=== PATIENT | female | born 2000 | race Caucasian/White ===

== ENCOUNTER 2025-03-01 15:21 | Outpatient (REF) | payer OTHER, SELFPAY ==
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
--- OUTSIDE RECORDS SUMMARY | 2025-03-01 10:45 | XMS_ITS | Encounter Summary ---
Author Organization [facility] Address [address] [place] [address] Phone Care Team Providers Care Coroner'S Juror Name Role Phone Muriel Randall CNP Primary Care Provid er Reason for Visit * Occupational Therapy (Within 3 days (urgent)) - Authorized Specialty Diagnoses / Procedures Referred By Jn corey Referred To Contact Occupational Therapy Diagnoses Bilateral wrist Natalia Aranda CNP [address] [place] [address] Phone: tel: fax: [email or web address] [address] [address] Phone: tel: Referral ID Status Reason Start Date Expiration Date V isits Requested Visits Authorized [id number] Authorized 02/06/2025 06/20/2025 99 99 Encounter Details Date Type Department Care Team (Latest Contact Info) Description 03/01/2025 10:45 AM EDT Office Visit [facility] [address] [place] [address] Natalia Aranda CNP [address] [place] [address] Nena Matias, OT [address] [place] [address] [email or web address] Bilateral carpal tunnel syndrome (Primary Dx); Tendonitis of both wrists Social History Tobacco Use Types Packs/Day Years Used Date Smoking Tobacco: Every Day Cigarettes Started: 07/21/2020; Last attempted to quit: 08/10/2022 Passive Smoke Exposure: Past Smokeless Tobacco: Never Comments:Fully quit krupa jimenez in early Mar 2024 Passive Exposure Comments:Both parents have hx smoking Alcohol Use Standard Drinks/Week Comments Not Currently 0 (1 standard drink = 0.6 oz pur e alcohol) Child or Family Care Answer Date Record ed Do you have problems with on e of the following making it difficult for you to work, study, or receive health care? No 02/01/2025 Education Answer Date Recorded Are you interested in help w ith more adult education (for example, completing high school, GED, job training, learning the [place] language, technical skills, or developing parenting skills)? No 02/01/2025 Are you concerned about your learning, performance, or behavior in school? No 02/01/2025 No 02/01/2025 Yes 02/01/2025 Food Answer Date Recorded Within the past 6 months we worried whether our food would run out before we got money to buy more. Sometimes True 025 Within the past 6 months the food we bought just didn't last and we didn't have enough money to get more. Sometimes True 01/19 Residential Stability Answer Date Recor ded What is your housing situation today? I have darnell cuevas 02/01/2025 How many times have you moved in the past 12 mon ths? One time 02/01/2025 Paying for Meds Answer Date Recorded Do you have trouble paying for medicines? No 02/01/2025 Paying Utility Bills Answer Date Record ed Do you have trouble paying your heating or elect ricity bill? No 02/01/2025 Transportation Answer Date Recorded Has the lack of transportati on kept you from medical appointments or from getting medications? Yes 02/01/2025 Unemployment Answer Date Recorded Are you currently unemployed or working on a part-time or temporary basis, and looking for work? No 02/01/2025 Digital Access Answer Date Recorded No 02/01/2025 Yes 02/01/2025 Do you have reliable internet access at home? Ye s 02/01/2025 Do you have a device (e.g., phone, tablet, computer) with a working camera? Yes 02/01/2025 Intimate Partner Violence Answer Date R ecorded Denied Basic Needs Not on file 11/03/2024 In the past 12 months have y ou been in a relationship with a person who hurts, threatens, or tries to control you? No 11/03/2024 Worried food would run out Not on file 11/03 In the past 12 months have y ou been in a relationship with a person who hurts, threatens, or tries to control you? No 11/03/2024 Comments Unknown Sex and Gender Information Value Date Recorded Sex Assigned at Female 01/27/2021 9:59 AM EDT Legal Sex Male 10:13 AM EDT Gender Identity Male 01/27/2021 9:59 AM EDT Sexual Orientation Lesbian or Gonzalez 12/29/2022 5: 28 AM EDT documented as of this encounter Plan of Treatment Upcoming Encounters Date Type Department Care Team (Latest Contact Info) Description 03/05/2025 2:00 PM EDT Telemedicine [facility] [address] [place] [address] Suni Joyce, PMHNP-BC [address] [place] [address] 03/06/2025 1:30 PM EDT Office Visit [facility] [address] [place] [address] Natalia Aranda CNP [address] [place] [address] [phone] Nena Matias, OT [address] [place] [address] [email or web address] 03/08/2025 9:40 AM EDT Office Visit [facility] & [facility] Medicine [address] [place] [address] [phone] Barbra Heath PA-C [address] [place] [address] [facility] [place] [address] 03/14/2025 9:00 AM EDT Office Visit [facility] [address] [place] [address] Natalia Aranda, PAULA [address] [place] [address] Enriqueta Bell, OT [address] [place] [address] [email or web address] 03/22/2025 1:30 PM EDT Office Visit [facility] [address] [place] [address] Natalia Aranda, PAULA [address] [place] [address] [email or web address] Enriqueta Bell, OT [address] [place] [address] [email or web address] 03/27/2025 2:15 PM EDT Office Visit [facility] [address] [place] [address] Natalia Aranda, SWEEPER OPERATOR [employer] [address] [place] [address] Nena Matias, OT [address] [place] [address] [email or web address] 04/30/2025 1:00 PM EST Office Visit [facility] [address] [place] [address] Ju Duke PA-C [address] [address] 08/13/2025 1:00 PM EST Office Visit [facility] Rheumatology [address] [place] [address] Myrna Mariano MD 22 [facility], [address] [address] [email or web address] 10/08/2025 1:00 PM EDT Telemedicine - audio only [facility] [address] [place] [address] Ju Duke PA-C [address] [place] [address] 10/23/2025 Procedure Pass OR Admitting Dept - Virtual Department [address] [place] [address] 10/23/2025 7:30 AM EDT Hospital Encounter OR Admitting Dept - Virtual Department [address] [place] [address] Ozzy Oquendo MD [address] [place] [address] 10/23/2025 7:30 AM EDT - 10/23/2025 11:12 AM EDT Surgery OR Admitting Dept - Virtual Department [address] [place] [address] Ozzy Oquendo MD [address] [place] [address] MASTECTOMY 10/29/2025 8:30 AM EDT Office Visit [facility] [address] [place] [address] Ju Duke PA-C [address] [place] [address] 11/06/2025 1:00 PM EDT Office Visit [facility] [address] [place] [address] Ju Duke PA-C 40 [facility] [address] [place] [address] [email or web address] [email or web address] Procedures Name Priority Associated Diagnoses Date/Ti me MASTECTOMY gender dysphoria 10/23/2025 7:30 AM EDT RECONSTRUCTION NIPPLE AREOLA gender dysphoria 10/23/2025 7:30 AM EDT Scheduled Referrals Name Type Priority Associated Diagnoses Order Schedule Ambulatory referral to [facility] Occupational Therapy Outpatient Referral Routine Ordered: 02/06/2025 documented as of this encounter Visit Diagnoses Diagnosis Bilateral carpal tunnel syndrome- Primary Carpal tunnel syndrome Tendonitis of both wrists documented in this encounter Additional Health Concerns Assessment Noted Time PHQ-9 Depression Total Score: 3 02/02/20 23 10:56 AM EDT PHQ-2 Depression Total Score: 2 11/11/19 25 12:31 PM EDT documented as of this encounter Care Teams Coroner'S Juror Relationship Specialty Start Date End Date Muriel Randall CNP [address] [place] [address] PCP - General Nurse Practitioner 04/18/24 documented as of this encounter Additional Source Comments The information contained in this document represents components of the legal health record. It is not the complete legal health record.[facility]
--- OUTSIDE RECORDS SUMMARY | 2025-03-01 18:36 | XMS_ITS | Encounter Summary ---
Author Organization [facility] Address [address] [place] [address] Phone Care Team Providers Care Legal Service Specialist Name Role Phone Muriel Randall CNP Primary Care Provid er Encounter Details Date Type Department Care Team (Late st Contact Info) Description 02/27/2025 Orders Only [facility] [address] [place] [address] [phone] Natalia Aranda CNP [address] [place], [place] [phone] [email or web address] Chronic pain of both wrists (Primary Dx) Social History Tobacco Use Types Packs/Day Years Used Date Smoking Tobacco: Every Day Cigarettes Started: 07/21/2020; Last attempted to quit: 08/10/2022 Passive Smoke Exposure: Past Smokeless Tobacco: Never Comments:Fully quit cigarett es in early Mar 2024 Passive Exposure Comments:Both [...] high school, GED, job training, learning the [place] language, technical skills, or developing parenting skills)? [...] have you moved in the past 12 wed th? One time 02/01/2025 Paying for Meds Answer [...] Description 03/05/2025 2:00 PM EDT Telemedicine [facility] [address] [place] [address] Suni Joyce, PMHNP-BC [address] [place] [address] 03/06/2025 1:30 PM EDT Office Visit [facility] [address] [place] [address] Natalia Aranda, SHOT DROPPER [address] [place] [address] Nena Matias, OT [address] [place], [place] [phone] [email or web address] 03/08/2025 9:40 AM EDT Office Visit [facility] Orthopedics & Sports Medicine [address] [place] [address] [phone] Barbra Heath PA-C [address] [place] [address] Orthopedics & Sports Medicine, [place] [address] 03/14/2025 9:00 AM EDT Office Visit [facility] [address] [place] [address] Natalia Aranda, SHOT DROPPER [address] [place] [address] Enriqueta Bell, OT [address] [place] [address] [email or web address] 03/22/2025 1:30 PM EDT Office Visit [facility] [address] [place] [address] Natalia Aranda, SHOT DROPPER [address] [place] [address] [phone] Enriqueta Bell, OT [address] [place] [address] [email or web address] 03/27/2025 2:15 PM EDT Office Visit [facility] [address] [place] [address] Natalia Aranda, SHOT DROPPER [address] [place] [address] Nena Matias, OT [address] [place] [address] [email or web address] 04/30/2025 1:00 PM EST Office Visit [facility] Plastic Surgery [address] [place] [address] Ju Duke PA-C [address] [place] [address] 08/13/2025 1:00 PM EST Office Visit [facility] Rheumatology [address] [place] [address] Myrna Mariano MD [address] [address] [email or web address] 10/08/2025 1:00 PM EDT Telemedicine - audio only [facility] Plastic Surgery [address] [place] [address] Ju Duke PA-C [address] [place] [address] 10/23/2025 Procedure Pass OR Admitting Dept - Virtual Department [address] [place] [address] 10/23/2025 7:30 AM EDT Hospital Encounter OR Admitting Dept - Virtual Department [address] [place] [address] Ozzy Oquendo MD [address] [place] [address] 10/23/2025 7:30 AM EDT - 10/23/2025 11:12 AM EDT Surgery OR Admitting Dept - Virtual Department [address] [place] [address] Ozzy Oquendo MD [address] [place] [address] MASTECTOMY 10/29/2025 8:30 AM EDT Office Visit [facility] Plastic Surgery [address] [place] [address] Ju Duke PA-C [address] [place] [address] 11/06/2025 1:00 PM EDT Office Visit [facility] Plastic Surgery [address] [place] [address] Ju Duke PA-C [address] [place] [address] [email or web address] Scheduled Procedures Name Priority Associated Diagnoses Date/Ti me MASTECTOMY gender dysphoria 10/23/2025 7:30 AM EDT RECONSTRUCTION NIPPLE AREOLA gender dysphoria 10/23/2025 7:30 AM EDT documented as of this encounter Visit Diagnoses Diagnosis Chronic pain of both wrists- Primary documented in this encounter Additional Health Concerns Assessment Noted Time PHQ-9 Depression Total Score: 3 02/02/20 23 10:56 AM EDT PHQ-2 Depression Total Score: 2 11/11/19 25 12:31 PM EDT documented as of this encounter Care Teams Legal Service Specialist Relationship Specialty Start Date End Date Muriel Randall CNP [address] [place] [address] PCP - General Nurse Practitioner 04/18/24 documented as of this encounter Additional Source Comments The information contained in this document represents components of the legal health record. It is not the complete legal health record[facility]
--- OUTSIDE RECORDS SUMMARY | 2025-03-01 18:36 | XMS_ITS | Clinical Summary ---
Author Organization [facility] Address [address] [place] [address] Phone Care Team Providers Care Business Banking Manager Name Role Phone Muriel Randall CNP Primary Care Provid er Allergies Active Allergy Reactions Criticality Noted Date Comments Amoxicillin Rash Low 07/01/2022 Had rash as a child Medications needle, disp, 18 G 18 gauge x 1 NdleIndications: Gender incongruence Use weekly to DRAW UP testosterone from vial 12 each 3 04/18/20 24 Active needle, disp, 25 gauge (BD REGULAR BEVEL NEEDLES) 25 gauge x 5/8 NdleIndications: Gender incongruence Use as directed to INJECT testosterone via subcutaneous route 12 each 3 04/18/20 24 Active syringe, disposable, 1 mL SyrgIndications: Gender incongruence Use as directed for subcutaneous testoterone injections 12 each 3 04/18/20 24 Active cloNIDine HCL (CATAPRES) 0.2 MG tabletIndication s:Depression with anxiety Take 1 tablet (0.2 mg total) by mouth nightly at bedtime. 90 tablet 2 12/26/19 25 Active escitalopram oxalate (LEXAPRO) 20 MG tabletIndication s:Depression with anxiety Take 1 tablet (20 mg total) by mouth daily. 90 tablet 1 01/10/20 25 Active ergocalciferol (DRISDOL) 50,000 unit capsule Take 1 capsule (50,000 Units total) by mouth once a week. Take for 12 full weeks 12 capsule 01/19/20 25 Active testosterone cypionate (DEPO-TESTOTERON E) 200 mg/mL injectionIndicat ions:Gender incongruence Inject 0.4ml (80mg) under the skin once weekly. Discard vial after single use. 4 mL 3 02/06/20 25 Active gabapentin (NEURONTIN) 100 MG capsule Take 1 capsule (100 mg total) by mouth nightly at bedtime as needed (Take for worsening hand pain) for 4 days, THEN 3 capsules (300 mg total) nightly at bedtime as needed (Take for worsening hand pain). 60 capsule 2 02/07/20 25 025 Active meloxicam (MOBIC) 15 MG tablet Take 1 tablet (15 mg total) by mouth daily. 30 tablet 2 02/28/20 25 025 Active testosterone cypionate (DEPO-TESTOTERON E) 200 mg/mL injectionIndicat ions:Gender incongruence Inject 0.4ml (80mg) under the skin once weekly. Discard vial after single use. 4 mL 3 10/25/19 25 025 Discontin ued(Reord er) meloxicam (MOBIC) 15 MG tabletIndication s:Carpal tunnel syndrome, unspecified laterality Take 1 tablet (15 mg total) by mouth daily. 30 tablet 12/26/19 25 025 Discontin ued(Reord er) meloxicam (MOBIC) 15 MG tabletIndication s:Carpal tunnel syndrome, unspecified laterality Take 1 tablet (15 mg total) by mouth daily. 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 Follow up in 1 month Will adjust doses based on results LACEY (generalized anxiety disorder) 12/30/2022 Assessment & Plan (06/01/2023 3:45 PM EST): Recommend hydroxyzine 25 mg every 6 hours as needed for panic attacks or increasing anxiety Depression 12/28/2022 Assessment & Plan (06/01/2023 3:43 PM EST): Increase Lexapro to 20mg daily Let me know how it's working Assessment & Plan (12/28/2022 9:05 PM EDT): Based on googling possible suicide methods, consulted crisis services (Talita) from [facility]. Her evaluation did not support moving to higher level of care but they will contact Gregory for the next three days to see if he needs support. Gave Gregory crisis contact information as well as info on peer groups and supports via [employer], [employer] and others. Consulted MHNP who noted that escitalopram sometimes has a more rapid onset. Based on this, prescribed starting dose of escitalopram daily and clonidine nightly. Follow up weekly for testosterone shots, so we will use this as an opportunity to check in on him. Follow up with me in four weeks. Has follow up with therapist next week. Recommended going to weekly therapy for the time being to help stablize. 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 Assessment & Plan (06/01/2023 3:43 PM EST): Get labs done in the next few months at [facility] Follow up in 6 months Assessment & Plan (04/13/2023 3:42 PM EDT): Decrease testosterone to 0.35 mL (70mg) weekly due to increased anxiety Refer to speech therapy for some voice work Follow up in six months Assessment & Plan (02/01/2023 8:17 PM EDT): Continue current management Labs in 5 months Follow up in six months Assessment & Plan (10/09/2022 12:39 PM EDT): Increase testosterone to 80mg weekly Labs in 2-3 mos Follow up in six months Assessment & Plan (07/03/2022 4:54 PM EST): Change to testosterone injectable 50 mg weekly Will want shots with nurses Sent info for parents Follow up and labs in three months Assessment & Plan (01/02/2022 1:34 PM EDT): Most likely will need to pause testosterone until gets HS under control. Assessment & Plan (11/24/2021 5:03 PM EDT): Gregory meets criteria for the diagnosis of gender dysphoria and readiness to start hormone therapy with testosterone. Start at 50 mg (0.25 mL) testosterone weekly via subcutaneous route Follow up in 6 weeks for check in, 3 months for labs Assessment & Plan (09/19/2021 4:48 PM EDT): Thank you for coming in today. We'll see you back in a few weeks. 1. I've given you a bunch of resource materials. Take a look, wrangell, sandra, ask questions and we'll discuss next time. Or, drop me a note in the patient portal. 2. Labwork: Please get labs done before 10 am at least one week prior to our next appointment. We will go over the results then unless something is really abnormal. Assessment & Plan (01/29/2021 3:41 PM EDT): Review informed consent and testosterone information Get labwork completed I'm going to refer you to Dr. Oquendo for a surgery consultation Follow up live in 2-3 weeks. Hidradenitis suppurativa 01/29/2021 Assessment & Plan (01/02/2022 1:33 PM EDT): Tried to engage for various treatments and patient has tried them before. Will refer to dermatology. Assessment & Plan (01/29/2021 3:42 PM EDT): Will observe when you start testosterone and treat accordingly. Encounters Date Type Department Care Team Description 03/01/2025 10:45 AM EDT Office Visit [facility] [address] [place] [address] Crisfield, Natalia Chelle, STONE POLISHER HAND Nena Matias OT Bilateral carpal tunnel syndrome (Primary Dx); Tendonitis of both wrists 02/27/2025 Telephone [facility] [address] [place] [phone] Lucina Sams, SANDY External MRI 02/27/2025 Orders Only [facility] [address] [place] [phone] Crisfield, Natalia Corbett, STONE POLISHER HAND Chronic pain of both wrists (Primary Dx) 02/13/[address] [phone] Carrie Holley MA Appointment (Calling to reschedule appointment due to patient arriving too late) 02/12/2025 10:15 AM EDT Office Visit [facility] [address] [place] [phone] Myrna Cisneros MD Extensor tenosynovitis of left wrist (Primary Dx); Bilateral hand numbness 02/06/2025 10:00 AM EDT Telemedicine [facility] [address] [place] [address] [phone] Natalia Aranda, PAULA Bilateral hand pain (Primary Dx); Bilateral wrist pain 02/06/2025 Telephone [facility] [address] [place] [address] [phone] Nirmal Turner RN 02/01/2025 1:00 PM EDT Telemedicine [facility] [address] [place] [address] [phone] Muriel Randall CNP Chronic pain of both wrists (Primary Dx); Carpal tunnel syndrome, unspecified laterality; Vitamin D deficiency, unspecified 01/18/2025 Orders Only [facility] [address] [place] [address] [phone] Muriel Randall CNP Vitamin D deficiency, unspecified (Primary Dx) 01/17/2025 11:39 AM EDT - 01/17/2025 11:59 PM EDT Hospital Encounter [facility], [address] [address] Muriel Randall CNP Discharge Disposition: Home or Self Care 01/17/2025 11:39 AM EDT - 01/17/2025 11:59 PM EDT Hospital Encounter [address] [phone] Muriel Randall CNP Discharge Disposition: Home or Self Care 01/17/2025 11:38 AM EDT Hospital Encounter [address] [address] Muriel Randall CNP Discharge Disposition: Home or Self Care 01/17/2025 11:37 AM EDT Hospital Encounter [address] [address] Muriel Randall CNP Discharge Disposition: Home or Self Care 01/17/2025 10:29 AM EDT - 01/17/2025 11:36 AM EDT Hospital Encounter [facility] [address] [place] [phone] Muriel Randall CNP Discharge Disposition: Home or Self Care 01/17/2025 9:30 AM EDT Office Visit [facility] [address] [place] [phone] Muriel Randall CNP Polyarthralgia (Primary Dx); Bilateral wrist pain; Bilateral foot pain 01/09/2025 11:00 AM EDT Telemedicine [facility] [address] [place] [phone] Suni Joyce, HN- PTSD (post-traumatic stress disorder) (Primary Dx); Autism spectrum disorder 01/08/2025 Telephone [facility] [address] [place] [phone] Muriel Randall CNP 01/05/2025 9:00 AM EDT Telemedicine [facility] [address] [place] [phone] Muriel Randall CNP Medication management (Primary Dx) 12/25/2024 Telephone [facility] [address] [place] [phone] Lena Ashley MD 12/20/2024 10:30 AM EDT Office Visit [facility] [address] [place] [phone] Lena Ashley MD Carpal tunnel syndrome, unspecified laterality (Primary Dx); Depression with anxiety 12/20/2024 Telephone [facility] [address] [place] [phone] Eli Campa MA 12/14/2024 Refill [facility] [address] [place] [phone] Lena Ashley MD Medication Refill from Last 3 Months Immunizations Immunization Administration Dates Next Due COVID-19 (Pre-04/12) Pfizer Vaccine, mRNA, PF 11/16/2020,10/22/2020 HPV9 12/05/2020,07/15/2020,05/13/2020 Influenza Quadrivalent Preservative Free IM 04/21,04/06/2019 Meningococcal B, recombinant (MenB-FHbp) 020,05/12/2019 Meningococcal MCV4P 05/12/2019 Family History Medical History Relation Comments No Known Problems Father Hidradenitis suppurativa Mother No Known Problems Sister 1 No Known Problems Sister 2 No Known Problems Sister 3 No Known Problems Sister 4 Relation Status Comments Father Alive Mother Alive Sister 1 Alive Sister 2 Alive Sister 3 Alive Sister 4 Alive Social History Tobacco Use Types Packs/Day Years Used Date Smoking Tobacco: Every Day Cigarettes Started: 07/21/2020; Last attempted to quit: 08/10/2022 Passive Smoke Exposure: Past Smokeless Tobacco: Never Tobacco Cessation:Ready to Q uit: Not Asked; Counseling Given: Not Answered Comments:Fully quit cigarettes in early Mar 2024 Passive Exposure Comments:Both [...] high school, GED, job training, learning the Yi language, technical skills, or developing parenting skills)? [...] your housing situation today? I have darnell sing 02/01/2025 How many times have you moved in the past 12 wed? One time 02/01/2025 Paying for Meds Answer [...] or Gonzalez 12/29/2022 5: 28 AM EDT Last Filed Vital Signs Vital Sign Reading Time Taken Comments Blood Pressure 120/80 01/17/2025 9:37 AM EDT Pulse 89 01/17/2025 9:37 AM EDT Temperature 36.5 C (97.7 F) 05/31/2023 9:42 AM EST Respiratory Rate - - Oxygen Saturation 99% 01/17/2025 9:37 AM EDT Inhaled Oxygen Concentration - - Weight 86.2 kg (190 lb) 02/26/2025 12:48 PM EDT Height 167.6 cm (5' 6 ) 02/26/2025 12:48 PM EDT Body Mass Index 30.67 02/26/2025 12:48 PM EDT Plan of Treatment Upcoming Encounters Date Type Department Care Team (Latest Contact Info) Description 03/05/2025 2:00 PM EDT Telemedicine [facility] [address] [place] [phone] Suni Joyce, PMHNP-BC [address] [place] [phone] 03/06/2025 1:30 PM EDT Office Visit [facility] [address] [place] [address] Natalia Aranda CNP [address] [place] [address] [phone] Nena Matias, OT [address] [place] [address] [email or web address] 03/08/2025 9:40 AM EDT Office Visit [facility] [address] [place] [phone] Barbra Heath PA-C [address] [place] [address] Orthopedics & Sports Medicine, [facility] [place] [address] 03/14/2025 9:00 AM EDT Office Visit [facility] [address] [place] [address] Natalia Aranda, PAULA [address] [place] [address] Enriqueta Bell, OT [address] [place] [address] [email or web address] 03/22/2025 1:30 PM EDT Office Visit [facility] [address] [place] [address] Natalia Aranda, PAULA [address] [place] [address] Enriqueta Bell, OT [address] [place] [address] [email or web address] 03/27/2025 2:15 PM EDT Office Visit [facility] [address] [place] [address] Natalia Aranda, PAULA [address] [place] [address] Nena Matias, OT [address] [place] [address] [email or web address] 04/30/2025 1:00 PM EST Office Visit [facility] Plastic Surgery [address] [place] [address] Ju Duke PA-C [address] [phone] 08/13/2025 1:00 PM EST Office Visit [facility] Rheumatology [address] [place] [address] Myrna Mariano MD [address] [facility], [address] [place] [phone] [email or web address] 10/08/2025 1:00 PM EDT Telemedicine - audio only [facility] Plastic Surgery [address] [place] [phone] Ju Duke PA-C [address] [place] [phone] 10/23/2025 Procedure Pass OR Admitting Dept - Virtual Department [address] [place] [phone] 10/23/2025 7:30 AM EDT Hospital Encounter OR Admitting Dept - Virtual Department [address] [place] [phone] Ozzy Oquendo MD [address] [place] [phone] 10/23/2025 7:30 AM EDT - 10/23/2025 11:12 AM EDT Surgery OR Admitting Dept - Virtual Department [address] [place] [phone] Ozzy Oquendo MD [address] [place] [phone] MASTECTOMY 10/29/2025 8:30 AM EDT Office Visit [facility] Plastic Surgery [address] [place] [phone] Ju Duke PA-C [address] [place] [address] 11/06/2025 1:00 PM EDT Office Visit [facility] Plastic Surgery [address] [place] [phone] Ju Duke PA-C [address] [place] [address], [address] [place] [address] [email or web address] Scheduled Procedures Name Priority Associated Diagnoses Date/Ti me MASTECTOMY gender dysphoria 10/23/2025 7:30 AM EDT RECONSTRUCTION NIPPLE AREOLA gender dysphoria 10/23/2025 7:30 AM EDT Health Maintenance Due Date Last Done Comments Adult Td,Tdap Booster 2002 HEPATITIS C SCREENING 2020 HIV ONE-TIME SCREENING (18-6 5 YEARS) 2020 PNEUMOCOCCAL VACCINES (0-49 years) (1 of 2 - PCV) 2021 INFLUENZA VACCINE (#1) 2025 9, 04/06/2019 COVID-19 VACCINE (3 - 2024-2 6 season) 2025 11/16/2020, 10/22/2020 DEPRESSION SCREENING 11/10/2025 11/10/2024, 01/22/2024 SMOKING Hx and SMOKELESS TOBACCO SCREENING 02/12/2026 02/12/2025 MENINGOCOCCAL VACCINES (ACWY) Completed 05/12/2019 MENINGOCOCCAL VACCINES (B) Completed 05/13, 05/12/2019 HPV VACCINES Completed 12/05/2020, 07/15/2020, 05/13/2020 HEPATITIS A VACCINES Aged Out No long er eligible based on patient's age to complete this topic HIB VACCINES Aged Out No longer eligi ble based on patient's age to complete this topic Medical Devices Not on file Procedures Procedure Name Priority Date/Time Associated Diagnosis Comments XR FOOT 3 OR MORE VIEWS (LEFT) Routine 01/17/2025 12:22 PM EDT Bilateral foot pain XR HAND 3 OR MORE VIEWS (RIGHT) Routine 01/17/2025 12:21 PM EDT Bilateral wrist pain XR HAND 3 OR MORE VIEWS (LEFT) Routine 01/17/2025 12:21 PM EDT Bilateral wrist pain XR FOOT 3 OR MORE VIEWS (RIGHT) Routine 01/17/2025 12:21 PM EDT Bilateral foot pain Antinuclear antibody, titer and pattern Routine 01/17/2025 11:18 AM EDT TESTOSTERONE, TOTAL Routine 01/17/2025 1 1:18 AM EDT Polyarthralgia CBC AND DIFFERENTIAL Routine 01/17/2025 11:18 AM EDT Polyarthralgia ANTINUCLEAR ANTIBODY (FABIOLA) Routine 01/17/2025 11:18 AM EDT Polyarthralgia C-REACTIVE PROTEIN Routine 01/17/2025 11 :18 AM EDT Polyarthralgia 25-OH VITAMIN D Routine 01/17/2025 11:18 AM EDT Polyarthralgia RHEUMATOID FACTOR Routine 01/17/2025 11: 18 AM EDT Polyarthralgia COMPREHENSIVE METABOLIC PANEL Routine 01/17/2025 11:18 AM EDT Polyarthralgia TSH WITH REFLEX Routine 01/17/2025 11:18 AM EDT Polyarthralgia SS-A/SS-B ANTIBODIES Routine 01/17/2025 11:18 AM EDT Polyarthralgia DOUBLE STRANDED DNA ANTIBODIES Routine 01/17/2025 11:18 AM EDT Polyarthralgia SEDIMENTATION RATE (ESR) Routine 01/17/2025 11:18 AM EDT Polyarthralgia U1RNP AND ARNOLD ANTIBODIES Routine 01/17/2025 11:18 AM EDT Polyarthralgia HC IADNA NOS AMPLIFIED PROBE TQ EACH ORGANISM Routine 01/17/2025 11:18 AM EDT Polyarthralgia LYME SCREEN WITH REFLEX TO WESTERN BLOT, BLOOD Routine 01/17/2025 11:18 AM EDT Polyarthralgia from Last 3 Months Results * XR FOOT 3 OR MORE VIEWS (LEFT) (01/17/2025 12:22 PM EDT) Anatomical Region Laterality Modality Foot Left Computed Radiogr aphy 01/18/2025 3:46 PM EDT Impressions 01/18/2025 4:49 PM EDT 1. No fracture or dislocation. 2. No osseous erosion. 3. Mild bilateral hallux valgus. Narrative 01/18/2025 4:49 PM EDT XR FOOT 3 OR MORE VIEWS (RIGHT), XR FOOT 3 OR MORE VIEWS (LEFT), XR HAND 3 OR MORE VIEWS (RIGHT), XR HAND 3 OR MORE VIEWS (LEFT) Referring clinician's provided indication for this examination in Epic: Pain; bilater foot pain, non-specific. Present x 3 mos. Pain with ambulation. Mild protrusion of MTP join with mild deviation of L great toe COMPARISON: None. FINDINGS: Right hand: No fracture. No osseous erosion. Normal alignment. Normal joint spaces. No soft tissue swelling Left hand: No fracture. No osseous erosion. Normal alignment. Normal joint spaces. No soft tissue swelling Right foot: No fracture. Mild hallux valgus. Bipartite medial hallux sesamoid. No osseous erosion. Normal alignment. Normal joint spaces. No soft tissue swelling. Left foot: No fracture. Mild hallux valgus. Bipartite medial hallux sesamoid. No osseous erosion. Normal alignment. Normal joint spaces. No soft tissue swelling Procedure Note Venkatesh Marrero MD - 01/18/2025 XR FOOT 3 OR MORE VIEWS (RIGHT), XR FOOT 3 OR MORE VIEWS (LEFT), XR HAND 3OR MORE VIEWS (RIGHT), XR HAND 3 OR MORE VIEWS (LEFT) Referring clinician's provided indication for this examination in [facility]:Pain; bilater foot pain, non-specific. Present x 3 mos. Pain withambulation. Mild protrusion of MTP join with mild deviation of L greattoe COMPARISON: None. FINDINGS: Right hand: No fracture. No osseous erosion. Normal alignment. Normaljoint spaces. No soft tissue swelling Left hand: No fracture. No osseous erosion. Normal alignment. Normal jointspaces. No soft tissue swelling Right foot: No fracture. Mild hallux valgus. Bipartite medial halluxsesamoid. No osseous erosion. Normal alignment. Normal joint spaces. Nosoft tissue swelling. Left foot: No fracture. Mild hallux valgus. Bipartite medial halluxsesamoid. No osseous erosion. Normal alignment. Normal joint spaces. Nosoft tissue swelling IMPRESSION: 1. No fracture or dislocation. 2. No osseous erosion. 3. Mild bilateral hallux valgus. Muriel Randall STONE POLISHER HAND IMG XR LOWER EXTREMI TY Final Result * XR HAND 3 OR MORE VIEWS (RIGHT) (01/17/2025 12:21 PM EDT) Anatomical Region Laterality Modality Hand Right Computed Radiogr aphy 01/18/2025 3:46 PM EDT Impressions 01/18/2025 4:49 PM EDT 1. No fracture or dislocation. 2. No osseous erosion. 3. Mild bilateral hallux valgus. Narrative 01/18/2025 4:49 PM EDT XR FOOT 3 OR MORE VIEWS (RIGHT), XR FOOT 3 OR MORE VIEWS (LEFT), XR HAND 3 OR MORE VIEWS (RIGHT), XR HAND 3 OR MORE VIEWS (LEFT) Referring clinician's provided indication for this examination in Epic: Pain; bilater foot pain, non-specific. Present x 3 mos. Pain with ambulation. Mild protrusion of MTP join with mild deviation of L great toe COMPARISON: None. FINDINGS: Right hand: No fracture. No osseous erosion. Normal alignment. Normal joint spaces. No soft tissue swelling Left hand: No fracture. No osseous erosion. Normal alignment. Normal joint spaces. No soft tissue swelling Right foot: No fracture. Mild hallux valgus. Bipartite medial hallux sesamoid. No osseous erosion. Normal alignment. Normal joint spaces. No soft tissue swelling. Left foot: No fracture. Mild hallux valgus. Bipartite medial hallux sesamoid. No osseous erosion. Normal alignment. Normal joint spaces. No soft tissue swelling Procedure Note Venkatesh Marrero MD - 01/18/2025 XR FOOT 3 OR MORE VIEWS (RIGHT), XR FOOT 3 OR MORE VIEWS (LEFT), XR HAND 3OR MORE VIEWS (RIGHT), XR HAND 3 OR MORE VIEWS (LEFT) Referring clinician's provided indication for this examination in Epic:Pain; bilater foot pain, non-specific. Present x 3 mos. Pain withambulation. Mild protrusion of MTP join with mild deviation of L greattoe COMPARISON: None. FINDINGS: Right hand: No fracture. No osseous erosion. Normal alignment. Normaljoint spaces. No soft tissue swelling Left hand: No fracture. No osseous erosion. Normal alignment. Normal jointspaces. No soft tissue swelling Right foot: No fracture. Mild hallux valgus. Bipartite medial halluxsesamoid. No osseous erosion. Normal alignment. Normal joint spaces. Nosoft tissue swelling. Left foot: No fracture. Mild hallux valgus. Bipartite medial halluxsesamoid. No osseous erosion. Normal alignment. Normal joint spaces. Nosoft tissue swelling IMPRESSION: 1. No fracture or dislocation. 2. No osseous erosion. 3. Mild bilateral hallux valgus. Muriel Randall [facility] IMG XR UPPER EXTREMI TY Final Result * XR HAND 3 OR MORE VIEWS (LEFT) (01/17/2025 12:21 PM EDT) Anatomical Region Laterality Modality Hand Left Computed Radiogr aphy 01/18/2025 3:46 PM EDT Impressions 01/18/2025 4:49 PM EDT 1. No fracture or dislocation. 2. No osseous erosion. 3. Mild bilateral hallux valgus. Narrative 01/18/2025 4:49 PM EDT XR FOOT 3 OR MORE VIEWS (RIGHT), XR FOOT 3 OR MORE VIEWS (LEFT), XR HAND 3 OR MORE VIEWS (RIGHT), XR HAND 3 OR MORE VIEWS (LEFT) Referring clinician's provided indication for this examination in [facility]: Pain; bilater foot pain, non-specific. Present x 3 mos. Pain with ambulation. Mild protrusion of MTP join with mild deviation of L great toe COMPARISON: None. FINDINGS: Right hand: No fracture. No osseous erosion. Normal alignment. Normal joint spaces. No soft tissue swelling Left hand: No fracture. No osseous erosion. Normal alignment. Normal joint spaces. No soft tissue swelling Right foot: No fracture. Mild hallux valgus. Bipartite medial hallux sesamoid. No osseous erosion. Normal alignment. Normal joint spaces. No soft tissue swelling. Left foot: No fracture. Mild hallux valgus. Bipartite medial hallux sesamoid. No osseous erosion. Normal alignment. Normal joint spaces. No soft tissue swelling Procedure Note Venkatesh Marrero MD - 01/18/2025 XR FOOT 3 OR MORE VIEWS (RIGHT), XR FOOT 3 OR MORE VIEWS (LEFT), XR HAND 3OR MORE VIEWS (RIGHT), XR HAND 3 OR MORE VIEWS (LEFT) Referring clinician's provided indication for this examination in [facility]:Pain; bilater foot pain, non-specific. Present x 3 mos. Pain withambulation. Mild protrusion of MTP join with mild deviation of L greattoe COMPARISON: None. FINDINGS: Right hand: No fracture. No osseous erosion. Normal alignment. Normaljoint spaces. No soft tissue swelling Left hand: No fracture. No osseous erosion. Normal alignment. Normal jointspaces. No soft tissue swelling Right foot: No fracture. Mild hallux valgus. Bipartite medial halluxsesamoid. No osseous erosion. Normal alignment. Normal joint spaces. Nosoft tissue swelling. Left foot: No fracture. Mild hallux valgus. Bipartite medial halluxsesamoid. No osseous erosion. Normal alignment. Normal joint spaces. Nosoft tissue swelling IMPRESSION: 1. No fracture or dislocation. 2. No osseous erosion. 3. Mild bilateral hallux valgus. Muriel Randall STONE POLISH[employer] HAND IMG XR UPPER EXTREMI TY Final Result * XR FOOT 3 OR MORE VIEWS (RIGHT) (01/17/2025 12:21 PM EDT) Anatomical Region Laterality Modality Foot Right Computed Radiogr aphy 01/18/2025 3:46 PM EDT Impressions 01/18/2025 4:49 PM EDT 1. No fracture or dislocation. 2. No osseous erosion. 3. Mild bilateral hallux valgus. Narrative 01/18/2025 4:49 PM EDT XR FOOT 3 OR MORE VIEWS (RIGHT), XR FOOT 3 OR MORE VIEWS (LEFT), XR HAND 3 OR MORE VIEWS (RIGHT), XR HAND 3 OR MORE VIEWS (LEFT) Referring clinician's provided indication for this examination in [facility]: Pain; bilater foot pain, non-specific. Present x 3 mos. Pain with ambulation. Mild protrusion of MTP join with mild deviation of L great toe COMPARISON: None. FINDINGS: Right hand: No fracture. No osseous erosion. Normal alignment. Normal joint spaces. No soft tissue swelling Left hand: No fracture. No osseous erosion. Normal alignment. Normal joint spaces. No soft tissue swelling Right foot: No fracture. Mild hallux valgus. Bipartite medial hallux sesamoid. No osseous erosion. Normal alignment. Normal joint spaces. No soft tissue swelling. Left foot: No fracture. Mild hallux valgus. Bipartite medial hallux sesamoid. No osseous erosion. Normal alignment. Normal joint spaces. No soft tissue swelling Procedure Note Venkatesh Marrero MD - 01/18/2025 XR FOOT 3 OR MORE VIEWS (RIGHT), XR FOOT 3 OR MORE VIEWS (LEFT), XR HAND 3OR MORE VIEWS (RIGHT), XR HAND 3 OR MORE VIEWS (LEFT) Referring clinician's provided indication for this examination in [facility]:Pain; bilater foot pain, non-specific. Present x 3 mos. Pain withambulation. Mild protrusion of MTP join with mild deviation of L greattoe COMPARISON: None. FINDINGS: Right hand: No fracture. No osseous erosion. Normal alignment. Normaljoint spaces. No soft tissue swelling Left hand: No fracture. No osseous erosion. Normal alignment. Normal jointspaces. No soft tissue swelling Right foot: No fracture. Mild hallux valgus. Bipartite medial halluxsesamoid. No osseous erosion. Normal alignment. Normal joint spaces. Nosoft tissue swelling. Left foot: No fracture. Mild hallux valgus. Bipartite medial halluxsesamoid. No osseous erosion. Normal alignment. Normal joint spaces. Nosoft tissue swelling IMPRESSION: 1. No fracture or dislocation. 2. No osseous erosion. 3. Mild bilateral hallux valgus. Muriel Randall [employer] HAND IMG XR LOWER EXTREMI TY Final Result * Antinuclear antibody, titer and pattern (01/17/2025 11:18 AM EDT) FABIOLA TITER 1:40 Homogeneous [facility] 01/17/2025 11:1 8 AM EDT 01/17/2025 11:36 AM EDT Muriel Randall [employer] HAND LAB BLOOD ORDERABLES Final Result Performing Organization Address City/State/[facility] Co de Phone Number [address] [phone] * TICK-BORNE DNA PANEL, B (01/17/2025 11:18 AM EDT) B.Microti PCR Negative Negative [facility] DPT OF LAB MED AND PAT+ B.Duncani PCR Negative Negative [facility] DPT OF LAB MED AND PAT+ B.Divergens/MO-1 PCR Negative Negative [facility] DPT OF LAB MED AND PAT+ Comment: (NOTE) ADDITIONAL INFORMATION This test was developed and its performance characteristics determined by [facility] in a manner consistent with CLIA requirements. This test has not been cleared or approved by the U.S. Food and Drug Administration. ANAPLASMA PHAGOCYTO Negative Negative [facility] DPT OF LAB MED AND PAT+ EHRLICHIA CHAFFEENS Negative Negative [facility] DPT OF LAB MED AND PAT+ EHRL EWINGII/CANIS Negative Negative [facility] DPT OF LAB MED AND PAT+ EHRL MURIS-LIKE Negative Negative [facility] DPT OF LAB MED AND PAT+ Comment: (NOTE) ADDITIONAL INFORMATION This test was developed and its performance characteristics determined by [facility] in a manner consistent with CLIA requirements. This test has not been cleared or approved by the U.S. Food and Drug Administration. B. miyamotoi PCR Negative Negative [facility] DPT OF LAB MED AND PAT+ Comment: (NOTE) ADDITIONAL INFORMATION This test was developed and its performance characteristics determined by [facility] in a manner consistent with CLIA requirements. This test has not been cleared or approved by the U.S. Food and Drug Administration. Blood 01/17/2025 11:1 8 AM EDT 01/17/2025 11:35 AM EDT [facility] Barbra Randall [facility] LAB BLOOD ORDERABLES Final Result [facility] DPT OF LAB MED AND PAT+ [address] [place] [address] * SS-A/SS-B antibodies (01/17/2025 11:18 AM EDT) ANTI-RO ANTIBODY 2.28 0.00 - 19.99 OD UNIT [facility] RO INTERPRETATION Negative Negative [facility] ANTI-LA ANTIBODY 3.22 0.00 - 19.99 OD [facility] LA INTERPRETATION Negative Negative [facility] Blood 01/17/2025 11:1 8 AM EDT 01/17/2025 11:36 AM EDT [facility] Barbra Randall [facility] LAB BLOOD ORDERABLES Final Result [facility] [address] [place] [address] * Lyme Screen with Reflex to Immunoblot, Blood (01/17/2025 11:18 AM EDT) Lyme AB IgG Negative Negative [facility] Lyme AB IgM Negative Negative [facility] Blood 01/17/2025 11:1 8 AM EDT 01/17/2025 11:36 AM EDT Murielkasi Randall [employer] LAB BLOOD ORDERABLES Final Result Performing Organization Address City/State/[facility] Co de Phone Number [facility] [address] [place] [address] * (ABNORMAL) Comprehensive metabolic panel (01/17/2025 11:18 AM EDT) Pathologist [facility] SODIUM 139 133 - 146 mmol/L [facility] POTASSIUM 4.4 3.3 - 5.1 mmol/L [facility] CHLORIDE 105 96 - 108 mmol/L [facility] CO2 24 21 - 35 mmol/L [facility] BUN 16 6 - 19 mg/dL [facility] CREATININE 0.90 0.5 - 1.5 mg/dL [facility] GLUCOSE 92 70 - 99 mg/dL [facility] ALBUMIN 3.7(L) 3.9 - 4.8 g/dL [facility] TOTAL PROTEIN 7.1 6.5 - 8.0 g/dL [facility] CALCIUM 8.9 8.4 - 10.3 mg/dL [facility] ALKALINE PHOSPHATASE 71 39 - 117 U/L [facility] TOTAL BILIRUBIN 0.4 0.0 - 1.2 mg/dL [facility] AST 18 0 - 37 U/L [facility] ALT 9 0 - 40 U/L [facility] GLOBULIN 3.4 1 - 4.8 g/dL [facility] EGFR >120 >59 mL/min/1.7 3m2 [facility] Comment:Estimated glomerular filtration rate calculated using the CKD-EPI refit equation. ANION GAP 14 10 - 20 mmol/L [facility] Blood 01/17/2025 11:1 8 AM EDT 01/17/2025 11:36 AM EDT Muriel Randall [employer] LAB BLOOD ORDERABLES Final Result Performing Organization Address City/[facility]/ZIP Co de Phone Number [address] [address] * U1RNP and Arnold antibodies (01/17/2025 11:18 AM EDT) ANTI-SM ANTIBODY 6.15 0.00 - 19.99 OD [facility] SM INTERPRETATION Negative Negative [facility] ANTI-AIRBORNE [employer] SUPERINTENDENT ANTIBODY 9.95 0.00 - 19.99 OD [facility] AIRBORNE [employer] SUPERINTENDENT INTERPRETATION Negative Negative [facility] Blood 01/17/2025 11:1 8 AM EDT 01/17/2025 11:36 AM EDT [facility] Barbra Randall [facility] LAB BLOOD ORDERABLES Final Result Performing Organization Address [facility] Co de Phone Number [address] [address] * TSH with reflex (01/17/2025 11:18 AM EDT) TSH 1.04 0.27 - 4.20 uIU/mL [facility] Blood 01/17/2025 11:1 8 AM EDT 01/17/2025 11:36 AM EDT [facility] Barbra Randall [facility] LAB BLOOD ORDERABLES Final Result Performing Organization Address City/[facility] Co de Phone Number [address] [phone] * Double stranded DNA antibodies (01/17/2025 11:18 AM EDT) ANTI DSDNA ANTIBODY Negative at 1:10 [facility] Comment: Performing Pathologist, Supa Pan M.D., Ph.D. [phone] Normal: Negative at 1:10 To interpret a negative test for anti-little river or double stranded DNA antibodies in a patient suspected of having systemic lupus erythematosus, the following limitation should be noted. Anti-double stranded DNA antibodies are usually detected in SLE patients with active disease, especially in those with active renal disease. Anti-DNA antibodies are usually not detected in SLE patients with spontaneous or drug-induced remissions. Blood 01/17/2025 11:1 8 AM EDT 01/17/2025 11:36 AM EDT [facility] Final Result Performing Organization Address City/[facility]/ZIP Co de Phone Number [address] [address] * (ABNORMAL) 25-OH vitamin D (01/17/2025 11:18 AM EDT) 25 OH VIT D (TOTAL) 9(L) 30 - 60 ng/mL [facility] Blood 01/17/2025 11:1 8 AM EDT 01/17/2025 11:36 AM EDT [facility]LOOD ORDERABLES Final Result Performing Organization Address [facility] Co de Phone Number [address] [phone] * (ABNORMAL) Sedimentation rate (ESR) (01/17/2025 11:18 AM EDT) Pathologist [facility] ESR 21(H) 0 - 15 mm/h [facility] Blood 01/17/2025 11:1 8 AM EDT 01/17/2025 11:36 AM EDT [facility] LAB BLOOD ORDERABLES Final Result Performing Organization Address City/[facility] Co de Phone Number [address] [address] * (ABNORMAL) CBC and differential (01/17/2025 11:18 AM EDT) Pathologist [facility] WBC 9.85 4.00 - 11.00 K/uL [facility] RBC 5.32 4.50 - 5.90 M/uL [facility] HGB 14.5 13.5 - 17.5 g/dL [facility] HCT 45.7 41.0 - 53.0 % [facility] PLT 302 150 - 450 K/uL [facility] MCV 85.9 80.0 - 100.0 fL [facility] MCH 27.3 27.0 - 31.0 pg [facility] MCHC 31.7(L) 32.0 - 36.0 g/dL [facility] RDW 13.2 11.5 - 14.5 % [facility] MPV 11.4 8.4 - 12.0 fL [facility] NRBC 0.00 0.00 /100 WBCs [facility] ABSOLUTE NRBC 0.00 0.00 K/uL [facility] DIFF METHOD Auto [facility] NEUTS 62.7 48.0 - 76.0 % [facility] LYMPHS 26.4 18.0 - 41.0 % [facility] MONOS 8.4 4.0 - 11.0 % [facility] EOS 1.5 0.0 - 5.0 % [facility] BASOS 0.7 0.0 - 1.5 % [facility] Granulocytes, immature (%) 0.3 0.0 - 0.9 % [facility] ABSOLUTE NEUTS 6.17 1.92 - 7.60 K/uL [facility] ABSOLUTE LYMPHS 2.60 0.72 - 4.10 K/uL [facility] ABSOLUTE MONOS 0.83 0.16 - 1.10 K/uL [facility] ABSOLUTE EOS 0.15 0.00 - 0.50 K/uL [facility] ABSOLUTE BASOS 0.07 0.00 - 0.15 K/uL [facility] Granulocytes, immature 0.03 0.00 - 0.09 K/uL [facility] Blood 01/17/2025 11:1 8 AM EDT 01/17/2025 11:36 AM EDT Muriel Randall [employer] LAB BLOOD ORDERABLES Final Result [facility] [address] [place] [address] * Rheumatoid factor (01/17/2025 11:18 AM EDT) Pathologist [facility] RHEUMATOID FACTOR <10.0 0.0 - 14.0 IU/ml [facility] Blood 01/17/2025 11:1 8 AM EDT 01/17/2025 11:36 AM EDT [facility] BLOOD ORDERABLES Final Result Performing Organization Address [facility]/ZIP Co de Phone Number [address] [phone] * (ABNORMAL) C-Reactive Protein (01/17/2025 11:18 AM EDT) Pathologist [facility] C REACTIVE PROTEIN 13.7(H) 0.0 - 4.0 mg/L [facility] Blood 01/17/2025 11:1 8 AM EDT 01/17/2025 11:36 AM EDT [facility] LAB BLOOD ORDERABLES Final Result Performing Organization Address [facility] de Phone Number [address] [address] * (ABNORMAL) Antinuclear antibody (FABIOLA) (01/17/2025 11:18 AM EDT) Pathologist [facility] FABIOLA SCREEN ON HEP 2 Positive(A ) Negative [facility] Comment:An FABIOLA Titer has bee n reflexed. The results will follow. Blood 01/17/2025 11:1 8 AM EDT 01/17/2025 11:36 AM EDT [facility] TomasWestminster CNP LAB BLOOD ORDERABLES Final Result Performing Organization Address [facility] Co de Phone Number [address] [address] * Testosterone, total (01/17/2025 11:18 AM EDT) Pathologist [facility] TESTOSTERONE 737 249 - 836 ng/dL [facility] Blood 01/17/2025 11:1 8 AM EDT 01/17/2025 11:36 AM EDT Muriel Randall [facility] LAB BLOOD ORDERABLES Final Result [facility] [address] [place] [address] from Last 3 Months Insurance CIG[employer] PPO CIGNA PPO CIGNA PPO CIGNA PPO CIGNA PPO CIGNA PPO Member Subscriber Plan / Payer (Ef fective 2024-Present) Name:Gerardo Kate Relation to Subscriber:Self Name:Gerardo Kate Payer ID:[id number] ([facility]) Type:PPO Address: [place] [id number] CIG[employer] PPO [id number] Care Teams Business Banking Manager Relationship Specialty Start Date End Date O'[place], Muriel Barbra, STONE POLISHER HAND [address] [place] [address] PCP - General Nurse Practitioner 04/18/24 Additional Source Comments The information contained in this document represents components of the legal health record. It is not the complete legal health record.[facility]
--- OUTSIDE RECORDS SUMMARY | 2025-03-01 18:36 | XMS_ITS | Encounter Summary ---
Author Organization [facility] Address [address] [place] [address] Phone Care Team Providers Care Basting Marker Name Role Phone TylerNeomiMuriel Langston CNP Primary Care Provid er Reason for Visit * Reason Onset Date Comments External MRI 02/27/2025 Encounter Details Date Type Department Care Team (Late st Contact Info) Description 02/27/2025 Telephone [facility] Orthopedics & Sports Medicine [address] [place] [address] Lucina Sams, RN [address] [place] [address] [email or web address] External MRI Social History Tobacco Use Types Packs/Day Years [...] high school, GED, job training, learning the Icelandic language, technical skills, or developing parenting skills)? [...] AM EDT documented as of this encounter Progress Notes * Lucina Sams RN - 02/27/2025 12:29 PM EDT Order and PA re-faxed, previously faxed to wrong facility. * Lucina Sams RN - 02/27/2025 10:57 AM EDT Images from the original note were not included. A PA for this MRI to be completed at [facility] found in media from yesterday. PA and MRI order requisition faxed to [facility] as requested. left for pt requesting that he contact MRI scheduling and cancel MRI scheduled for 03/01 at [facility]. Message below copied and pasted from staff messages for documentation records. Cornel Jackson Cmg Clinical Safety Manager Good morning, Voice message requesting an External MRI order be sent to [facility]. F# [phone] Thank you, Cornel documented in this encounter Plan of Treatment Upcoming Encounters Date Type Department Care Team (Latest Contact Info) Description 03/05/2025 2:00 PM EDT Telemedicine [facility] [address] [place] [phone] Suni Joyce, PMHNP-BC [address] [place], [place] [phone] 03/06/2025 1:30 PM EDT Office Visit [facility] [address] [place] [address] [place] [address] Natalia Aranda, PAULA [address] [place] [address] Nena Matias, OT [address] [place] [address] [email or web address] 03/08/2025 9:40 AM EDT Office Visit [facility] Orthopedics & Sports Medicine [address] [place] [phone] Barbra Heath PA-C [address] [place] [address] Orthopedics & Sports Medicine, [place] [address] 03/14/2025 9:00 AM EDT Office Visit [facility] [address] [place] [address] Natalia Aranda, TRIM ATTACHER [address] [place] [address] Enriqueta Bell, OT [address] [place] [address] [email or web address] 03/22/2025 1:30 PM EDT Office Visit [facility] [address] [place] [address] Natalia Aranda, TRIM ATTACHER [address] [place] [address] Enriqueta Bell, OT [address] [place] [address] [email or web address] 03/27/2025 2:15 PM EDT Office Visit [facility] [address] [place] [address] Natalia Aranda, TRIM ATTACHER [address] [place] [address] Nena Matias, OT [address] [place] [address] [email or web address] 04/30/2025 1:00 PM EST Office Visit [facility] Plastic Surgery [address] [place] [address] Ju Duke PA-C [address] [place] [address] 08/13/2025 1:00 PM EST Office Visit [facility] Rheumatology [address] [place] [address] Myrna Mariano MD [address] [place] [address] [email or web address] 10/08/2025 1:00 PM EDT Telemedicine - audio only [facility] [address] [place] [address] Ju Duke PA-C [address] [place] [address] 10/23/2025 Procedure Pass OR Admitting Dept - Virtual Department [address] [place] [address] 10/23/2025 7:30 AM EDT Hospital Encounter OR Admitting Dept - Virtual Department [address] [place] [address] Ozzy Oquendo MD [address] [place] [address] 10/23/2025 7:30 AM EDT - 10/23/2025 11:12 AM EDT Surgery OR Admitting Dept - Virtual Department [address] [place] [address] Ozzy Oquendo MD [address] [place] [address], [address] [address] MASTECTOMY 10/29/2025 8:30 AM EDT Office Visit [facility]astic Surgery [address] [place] [address] Ju Duke PA-C [address] [place] [address] 11/06/2025 1:00 PM EDT Office Visit [facility] Plastic Surgery [address] [place] [address] Ju Duke PA-C [address] [place] [address] Scheduled Procedures Name Priority Associated Diagnoses Date/Ti me MASTECTOMY gender dysphoria 10/23/2025 7:30 AM EDT RECONSTRUCTION NIPPLE AREOLA gender dysphoria 10/23/2025 7:30 AM EDT documented as of this encounter Visit Diagnoses Not on filedocumented in this encounter Additional Health Concerns Assessment Noted Time PHQ-9 Depression Total Score: 3 02/02/20 23 10:56 AM EDT PHQ-2 Depression Total Score: 2 11/11/19 25 12:31 PM EDT documented as of this encounter Care Teams Basting Marker Relationship Specialty Start Date End Date Muriel Randall CNP [address] [place] [phone] PCP - General Nurse Practitioner 04/18/24 documented as of this encounter Additional Source Comments The information contained in this document represents components of the legal health record. It is not the complete legal health record.[facility]
--- OUTSIDE RECORDS SUMMARY | 2025-03-01 18:37 | XMS_ITS | Encounter Summary ---
Author Organization [facility] Address [address] [place] [address] Phone Care Team Providers Care Concrete Floor Installer Name Role Phone TylerNoemiMuriel Langston CNP Primary Care Provid er Reason for Visit * Reason Comments Medication Refill Encounter Details Date Type Department Care Team (Late st Contact Info) Description 12/14/2024 Refill [facility] [address] [place] [address] [phone] Lena Ashley MD [address] [place], [place] [phone] Medication Refill Social History Tobacco Use Types Packs/Day Years Used Date Smoking Tobacco: Former Cigarettes 0 07/21/2020 - 08/10/2022 Passive Smoke Exposure: Past Smokeless Tobacco: [...] work, study, or receive health care? No 01/22/2024 Education Answer Date Recorded Are you interested in more education? Not on unruly e 01/22/2024 Are you concerned about your learning, performance, or behavior in school? No 01/22/2024 No 01/22/2024 Yes 01/22/2024 Food Answer Date Recorded Within the past 6 months we worried whether our food would run out before we got money to buy more. Never True 01/22/2024 Within the past 6 months the food we bought just didn't last and we didn't have enough money to get more. Never True Residential Stability Answer Date Recor ded What is your housing situation today? I have darnell cuevas 01/22/2024 How many times have you moved in the past 12 wed ths? One time 01/22/2024 Paying for Meds Answer Date Recorded Do you have trouble paying for medicines? No 01/22/2024 Paying Utility Bills Answer Date Record ed Do you have trouble paying your heating or elect ricity bill? No 01/22/2024 Transportation Answer Date Recorded Has the lack of transportati on kept you from medical appointments or from getting medications? No 01/22/2024 Unemployment Answer Date Recorded Are you currently unemployed or working on a part-time or temporary basis, and looking for work? No 01/22/2024 Digital Access Answer Date Recorded Yes 01/22/2024 Yes 01/22/2024 Do you have reliable internet access at home? No 01/22/2024 Do you have a device (e.g., phone, tablet, computer) with a working camera? Yes 01/22/2024 Intimate Partner Violence Answer Date R ecorded [...] Description 03/05/2025 2:00 PM EDT Tele[facility]icine [facility] [address] [place] [address] Suni Joyce, PMHNP-[address] [address] 03/06/2025 1:30 PM EDT Office Visit [facility] Services [address] [place] [address] Natalia Aranda, PAULA [address] [place] [address] Nena Matias, OT [address] [place] [address] [email or web address] 03/08/2025 9:40 AM EDT Office Visit [facility] Orthopedics & Sports Medicine [address] [place] [address] Barbra Heath PA-C [address] [place] [address] Orthopedics & Sports Medicine, [facility] [place] [address] 03/14/2025 9:00 AM EDT Office Visit [facility] [address] [place] [address] Natalia Aranda, PAULA [address] [place] [address] Enriqueta Bell, OT 30 [place] [address] [email or web address] 03/22/2025 1:30 PM EDT Office Visit [facility] [address] [place] [address] Natalia Aranda, PAULA [address] [place] [address] Enriqueta Bell, OT 30 [place] [address] [email or web address] 03/27/2025 2:15 PM EDT Office Visit [facility] [address] [place] [address] Natalia Aranda CNP 10 [place] [address] Nena Matias, OT [address] [place] [address] [email or web address] 04/30/2025 1:00 PM EST Office Visit [facility] Plastic Surgery [address] [place] [address] Ju Duke PA-C [address] [place] [address] 08/13/2025 1:00 PM EST Office Visit [facility] Rheumatology [address] [place] [address] Myrna Mariano MD [address] [address] [email or web address] 10/08/2025 1:00 PM EDT Telemedicine - audio only [facility] Plastic Surgery [address] [place] [address] Ju Duke PA-C [address] [place] [address] 10/23/2025 Procedure Pass OR Admitting Dept - Virtual Department [address] [place] [address] 10/23/2025 7:30 AM EDT Hospital Encounter OR Admitting Dept - Virtual Department [address] [place] [address] Ozzy Oquendo MD [address] [place] [address] 10/23/2025 7:30 AM EDT - 10/23/2025 11:12 AM EDT Surgery OR Admitting Dept - Virtual Department [address] [place] [address] Ozzy Oquendo MD [address] [place] [address] MASTECTOMY 10/29/2025 8:30 AM EDT Office Visit [facility] Plastic Surgery [address] [place] [address] Ju Duke PA-C [address] [place] [address] 11/06/2025 1:00 PM EDT Office Visit [facility] Plastic Surgery [address] [place] [address] Ju Duke PA-C [address] [place] [address] Scheduled Procedures Name Priority Associated Diagnoses Date/Ti me MASTECTOMY gender dysphoria 10/23/2025 7:30 AM EDT RECONSTRUCTION NIPPLE AREOLA gender dysphoria 10/23/2025 7:30 AM EDT documented as of this encounter Visit Diagnoses Diagnosis Depression with anxiety Dysthymic disorder documented in this encounter Additional Health Concerns Assessment Noted Time PHQ-9 Depression Total Score: 3 02/02/20 23 10:56 AM EDT PHQ-2 Depression Total Score: 2 11/11/19 25 12:31 PM EDT documented as of this encounter Care Teams Concrete Floor Installer Relationship Specialty Start Date End Date Muriel Randall CNP [address] [place] [address] PCP - General Nurse Practitioner 04/18/24 documented as of this encounter Additional Source Comments The information contained in this document represents components of the legal health record. It is not the complete legal health record.[facility]
--- OUTSIDE RECORDS SUMMARY | 2025-03-01 18:37 | XMS_ITS | Encounter Summary ---
Author Organization [facility] Address [address] [place] [address] Phone Care Team Providers Care Cash Room Clerk Name Role Phone Muriel Randall CNP Primary Care Provid er Encounter Details Date Type Department Care Team (Late st Contact Info) Description 12/25/2024 Telephone [facility] [address] [place] [address] [phone] Lena Ashley MD 10 [place], [place] [phone] Social History Tobacco Use Types Packs/Day Years [...] as of this encounter Progress Notes * Whit Faye - 12/25/2024 10:15 AM EDT Pt calling stating that he was going to be given a pain rx after visit with DARLINE on Wednesday 12/20. Ptstates that no rx has been received by pharmacy. Please advise documented in this encounter Plan of Treatment Upcoming Encounters Date Type Department Care Team (Latest Contact Info) Description 03/05/2025 2:00 PM EDT Telemedicine [facility] [address] [place] [address] [phone] Suni Joyce, PMHNP-BC [address] [place] [address] [phone] 03/06/2025 1:30 PM EDT [facility] 8 [place] [address] Natalia Aranda CNP [address] [place] [address] [phone] [email or web address] Nena Matias, OT [address] [place] [address] [email or web address] 03/08/2025 9:40 AM EDT Office Visit [facility] Orthopedics & Sports Medicine [address] [place] [address] [phone] Barbra Heaht PA-C [address] [place] [address] Orthopedics & Sports Medicine, [facility]. [place], [place] [phone] 03/14/2025 9:00 AM EDT [facility] [address] [place] [address] Natalia Aranda CNP [address] [place] [address] [phone] Enriqueta Bell, OT 30 [place] [address] [email or web address] 03/22/2025 1:30 PM EDT [facility] [address] [place] [address] Rosi Nataliastevie Corbett, CRANBERRY FARM SUPERVISOR 10 [place] [address] Enriqueta Bell, OT 30 [place] [address] [email or web address] 03/27/2025 2:15 PM EDT Office Visit [facility] [address] [place] [address] Rosi Nataliastevie Corbett, CRANBERRY FARM SUPERVISOR 10 [place] [address] Nena Matias, OT [address] [place] [address] [email or web address] 04/30/2025 1:00 PM EST Office Visit [facility] Plastic Surgery [address] [place] [address] Ju Duke PA-C [address] [place] [address] 08/13/2025 1:00 PM EST Office Visit [facility] Rheumatology [address] [place] [address] Myrna Mariano MD [address] [address] [email or web address] 10/08/2025 1:00 PM EDT Telemedicine - audio only [facility] Plastic Surgery 40 [place] [address] Ju Duke PA-C [address] [place] [address] 10/23/2025 Procedure Pass OR Admitting Dept - Virtual Department [address] [place] [address] 10/23/2025 7:30 AM EDT Hospital Encounter OR Admitting Dept - Virtual Department [address] [place] [address] Ozzy Oquendo MD [address] [place] [address], [address] [address] 10/23/2025 7:30 AM EDT - 10/23/2025 11:12 AM EDT Surgery OR Admitting Dept - Virtual Department [address] [place] [address] Ozzy Oquendo MD [address] [place] [address], [address] [address] MASTECTOMY 10/29/2025 8:30 AM EDT Office Visit [facility] Plastic Surgery 40 [place] [address] Ju Duke PA-C [address] [place] [address] [email or web address] 11/06/2025 1:00 PM EDT Office Visit [facility] Plastic Surgery 40 [place] [address] Ju Duke PA-C [address] [place] [address], [address] [address] Scheduled Procedures Name Priority Associated Diagnoses Date/Ti [...] documented as of this encounter Care Teams Cash Room Clerk Relationship Specialty Start Date End Date Muriel Randall CNP [address] [place] [address] PCP - General Nurse Practitioner 04/18/24 documented as of this encounter Additional Source Comments The information contained in this document represents components of the legal health record. It is not the complete legal health record.[facility]
--- OUTSIDE RECORDS SUMMARY | 2025-03-01 18:37 | XMS_ITS | Encounter Summary ---
Author Organization [facility] Address [address] [place] [address] Phone Care Team Providers Care Research Tech Name Role Phone Jayesh Lemus MD Unavailable [phone] Leeanna Parker DNP Unavailable [phone] Jayesh Lemus MD Primary Care Provider [phone] Muriel Randall CNP Primary Care Provid er Encounter Details Date Type Department Care Team (Late st Contact Info) Description 03/03/2023 Telephone [facility] [address] [place], [place] [phone] Olga Muñoz RN [address] [place] [address] Social History Tobacco Use Types Packs/Day Years Used Date Smoking Tobacco: Former Cigarettes 0 07/21/2020 - 08/10/2022 Passive Smoke Exposure: Past Smokeless Tobacco: Never Comments:vape Passive Exposure Comments:Both parents have hx smoking Alcohol Use Standard Drinks/Week Comments Never 0 (1 standard drink = 0.6 oz pur e alcohol) Child or Family Care Answer Date Record ed Do you have problems with on e of the following making it difficult for you to work, study, or receive health care? No 02/04/2023 Education Answer Date Recorded Are you interested in help w ith more adult education (for example, completing high school, GED, job training, learning the Thai language, technical skills, or developing parenting skills)? No 02/04/2023 Are you concerned about your learning, performance, or behavior in school? No 02/04/2023 No 02/04/2023 Yes 02/04/2023 Food Answer Date Recorded Within the past 6 months we worried whether our food would run out before we got money to buy more. Never True 02/04/2023 Within the past 6 months the food we bought just didn't last and we didn't have enough money to get more. Never True Residential Stability Answer Date Recor ded What is your housing situation today? I have darnell sing 02/04/2023 How many times have you moved in the past 12 mon ths? One time 02/04/2023 Paying for Meds Answer Date Recorded Do you have trouble paying for medicines? No 02/04/2023 Paying Utility Bills Answer Date Record ed Do you have trouble paying your heating or elect ricity bill? No 02/04/2023 Transportation Answer Date Recorded Has the lack of transportati on kept you from medical appointments or from getting medications? No 02/04/2023 Unemployment Answer Date Recorded Are you currently unemployed or working on a part-time or temporary basis, and looking for work? No 06/26/2022 Digital Access Answer Date Recorded No 02/04/2023 Yes 02/04/2023 Do you have reliable internet access at home? Ye s 02/04/2023 Do you have a device (e.g., phone, tablet, computer) with a working camera? Yes 02/04/2023 Comments Unknown Sex and Gender Information Value [...] Description 03/05/2025 2:00 PM EDT Telemedicine [facility] [address] [place] [address] Suni Joyce, PMHNP-BC [address] [place] [address] 03/06/2025 1:30 PM EDT Office Visit [facility] Services [address] [place] [address] Natalia Aranda PAULA [address] [place] [address] Nena Matias, OT 380 [place] [address] [email or web address] 03/08/2025 9:40 AM EDT Office Visit [facility] Orthopedics & Sports Medicine [address] [place] [address] Barbra Heath PA-C [address] [place] [address] Orthopedics & Sports Medicine, [place] [address] 03/14/2025 9:00 AM EDT Office Visit [facility] 8 [place] [address] Natalia Aranda, PAULA [address] [place] [address] Enriqueta Bell, OT 30 [place] [address] [email or web address] 03/22/2025 1:30 PM EDT Office Visit [facility] Services 8 [place] [address] Natalia Aranda, YOUTH CARE PROFESSIONAL [address] [place] [address] Enriqueta Bell, OT 30 [place] [address] [email or web address] 03/27/2025 2:15 PM EDT Office Visit [facility] 8 [place] [address] Natalia Aranda, YOUTH CARE PROFESSIONAL [address] [place] [address] Nena Matias, OT 380 [place] [address] [email or web address] 04/30/2025 1:00 PM EST Office Visit [facility] Plastic Surgery 40 [place] [address] Ju Duke PA-C [address] [place] [address] 08/13/2025 1:00 PM EST Office Visit [facility] Rheumatology [address] [place] [address] Myrna Mariano MD [address] [place] [address] [email or web address] 10/08/2025 1:00 PM EDT Telemedicine - audio only [facility] Plastic Surgery [address] [place] [address] Ju Duke PA-C [address] [place] [address] 10/23/2025 Procedure Pass OR Admitting Dept - Virtual Department [address] [place] [address] 10/23/2025 7:30 AM EDT Hospital Encounter OR Admitting Dept - Virtual Department [address] [place] [address] Ozzy Oquendo MD [address] [place] [address], [address] [address] 10/23/2025 7:30 AM EDT - 10/23/2025 11:12 AM EDT Surgery OR Admitting Dept - Virtual Department [address] [place] [address] Ozzy Oquendo MD [address] [place] [address] [email or web address] 10/29/2025 8:30 AM EDT Office Visit [facility] Plastic Surgery [address] [place] [address] Ju Duke PA-C [address] [place] [address] [email or web address] 11/06/2025 1:00 PM EDT Office Visit [facility] Plastic Surgery [address] [place] [address] Ju Duke PA-C [address] [place] [address] [email or web address] Scheduled Procedures Name Priority Associated Diagnoses Date/Ti me MASTECTOMY gender dysphoria 10/23/2025 7:30 AM EDT RECONSTRUCTION NIPPLE AREOLA gender dysphoria 10/23/2025 7:30 AM EDT documented as of this encounter Visit Diagnoses Not on filedocumented in this encounter Additional Health Concerns Assessment Noted Time PHQ-9 Depression Total Score: 3 02/02/20 10:56 AM EDT PHQ-2 Depression Total Score: 1 02/02/20 10:56 AM EDT documented as of this encounter Care Teams Research Tech Relationship Specialty Start Date End Date Jayesh Lemus MD [address] [place] [address] PCP - General Pediatrics 02/01/23 04/17/24 Muriel Randall CNP [address] [place] [address] PCP - General Nurse Practitioner 04/18/24 Jayesh Lemus MD [address] [place] [address] Consulting Provider Pediatrics 11/17/21 01/21/24 Leeanna [place] DNP [address] [place] [phone] [place] [address] Nurse Practitioner Psychiatry 02/01/23 08/30/24 documented as of this encounter Additional Source Comments The information contained in this document represents components of the legal health record. It is not the complete legal health record.[facility]
--- OUTSIDE RECORDS SUMMARY | 2025-03-01 18:37 | XMS_ITS | Encounter Summary ---
Author Organization [facility] Address [address] [place] [address] Phone Care Team Providers Care Agricultural Engineering Technologist Name Role Phone TylerNoemiMuriel Langston CNP Primary Care Provid er Encounter Details Date Type Department Care Team (Late st Contact Info) Description 09/26/2024 Procedure Pass OR Admitting Dept - Virtual Department 30 [place] [address] Social History Tobacco Use Types Packs/Day Years [...] the past 12 mon ths? One time 01/22/2024 Paying for Meds [...] computer) with a working camera? Yes 01/22/2024 Comments Unknown Sex and Gender Information Value [...] 03/05/2025 2:00 PM EDT Telemedicine [facility] 10 [place], [place] [phone] Suni Joyce, PMHNP- 10 [place] [address] 03/06/2025 1:30 PM EDT Office Visit [facility] Services [address] [place] [address] Natalia Aranda CNP 10 [place], [place] [phone] Nena Matias, OT [address] [place] [address] [email or web address] 03/08/2025 9:40 AM EDT Office Visit [facility] Orthopedics & Sports Medicine [address] [place] [address] Barbra Heath PA-C [address] [place] [address] Orthopedics & Sports Medicine, [facility] [place] [address] 03/14/2025 9:00 AM EDT Office Visit [facility] 8 [place] [address] Natalia Aranda, RV REPAIR TECHNICIAN 10 [place] [address] Enriqueta Bell, OT 30 [place] [address] [email or web address] 03/22/2025 1:30 PM EDT Office Visit [facility] 8 [place] [address] Natalia Aranda, RV REPAIR TECHNICIAN 10 [place] [address] Enriqueta Bell, OT 30 [place] [address] [email or web address] 03/27/2025 2:15 PM EDT Office Visit [facility] 8 [place] [address] Natalia Aranda, RV REPAIR TECHNICIAN 10 [place] [address] Nena Matias, OT [address] [place] [address] [email or web address] 04/30/2025 1:00 PM EST Office Visit [facility] Plastic Surgery [address] [place] [address] Ju Duke PA-C [address] [place] [address] 08/13/2025 1:00 PM EST Office Visit [facility] Rheumatology [address] [place] [address] Myrna Mariano MD [address] [place] [address] [place] [address] [email or web address] 10/08/2025 1:00 PM EDT Telemedicine - audio only [facility] Plastic Surgery [address] [place] [address] Ju Duke PA-C [address] [place] [address] 10/23/2025 Procedure Pass OR Admitting Dept - Virtual Department [address] [place] [address] 10/23/2025 7:30 AM EDT Hospital Encounter OR Admitting Dept - Virtual Department [address] [place] [address] Ozzy Oquendo MD [address] [place] [address] 10/23/2025 7:30 AM EDT - 10/23/2025 11:12 AM EDT Surgery OR Admitting Dept - Virtual Department [address] [place] [address] Ozzy Oquendo MD [address] [place] [address] MASTECTOMY 10/29/2025 8:30 AM EDT Office Visit [facility] Plastic Surgery 40 [place] [address] Ju Duke PA-C [address] [place] [address] [email or web address] 11/06/2025 1:00 PM EDT Office Visit [facility] Plastic Surgery [address] [place] [address] Ju Duke PA-C [address] [place] [address] [email or web address] Scheduled Procedures Name Priority Associated Diagnoses Date/Ti me MASTECTOMY gender dysphoria 10/23/2025 7:30 AM EDT RECONSTRUCTION NIPPLE AREOLA gender dysphoria 10/23/2025 7:30 AM EDT documented as of this encounter Visit Diagnoses Not on filedocumented in this encounter Additional Health Concerns Assessment Noted Time PHQ-9 Depression Total Score: 3 02/02/20 23 10:56 AM EDT PHQ-2 Depression Total Score: 1 02/02/20 23 10:56 AM EDT documented as of this encounter Care Teams Agricultural Engineering Technologist Relationship Specialty Start Date End Date Muriel Randall CNP [address] [place] [address] PCP - General Nurse Practitioner 04/18/24 documented as of this encounter Additional Source Comments The information contained in this document represents components of the legal health record. It is not the complete legal health record.[facility]
== END 2025-03-01 15:22 | disposition home or self-care (01) ==
LOC: HO.MRI 15:21
PROVIDERS: Visit Provider Orthopaedic Surgery Hand Surgery
DX: Z01.818 Encounter for other preprocedural examination (principal); M65.932 Unspecified synovitis and tenosynovitis, left forearm
CPT/HCPCS: 70030

== ENCOUNTER → 2025-03-01 15:30 | Outpatient (BNV) | payer OTHER, SELFPAY | PROVIDERS: Visit Provider Radiology Diagnostic Radiology | DX: J32.0 Chronic maxillary sinusitis (principal) | CPT/HCPCS: 70030 ==